=== PATIENT | male | born 1950 | race Hispanic/Latino ===

== ENCOUNTER 2017-07-21 07:47 | Day surgery (SDC) | payer MEDICARE ==
[2017-07-16 09:45] VITALS: BP 141/93
[2017-07-16 10:05] LABS: BASOPHILS % (AUTO) 0.5 % (0.0-5.0); EOSINOPHILS % (AUTO) 1.6 % (0.0-8.0); HEMATOCRIT 38.6 % (42-54); LYMPHOCYTES % (AUTO) 38.2 % (21.0-51.0); MEAN CORPUSCULAR HEMOGLOBIN 32.9 pg (27.0-33.0); MEAN CORPUSCULAR HGB CONC 34.5 g/dL (32.0-36.0); MEAN CORPUSCULAR VOLUME 95.4 fL (79-99); MONOCYTES % (AUTO) 8.5 % (3.0-13.0); NEUTROPHILS % (AUTO) 51.2 % (40.0-77.0); PLATELET COUNT (AUTO) 179 K/uL (130-400); RED BLOOD CELL COUNT(AUTO) 4.05 MIL/uL (4.50-6.20); WHITE BLOOD COUNT (AUTO) 6.9 K/uL (4.8-10.8)
[2017-07-16 10:19] LABS: CREATININE 0.8 mg/dL (0.5-1.5); POTASSIUM 4.1 mmol/L (3.5-5.1)
[2017-07-16 10:27] LABS: APPEARANCE,URINE Cloudy (CLEAR); BILIRUBIN,URINE Negative (NEGATIVE); COLOR,URINE Yellow (YELLOW); GLUCOSE, URINE (UA) Negative (NEGATIVE); KETONES,URINE Negative (NEGATIVE); LEUKOCYTE ESTERASE ,URINE Negative (NEGATIVE); NITRATE,URINE Negative (NEGATIVE); OCCULT BLOOD,URINE Negative (NEGATIVE); PH,URINE 6.5 (5.0-8.0); PROTEIN,URINE Negative (NEGATIVE)
[2017-07-21] VITALS (17 sets, daily range): BP systolic 116–138; BP diastolic 63–87
[~2017-07-21] VITALS: Ht 162.6 cm; Wt 107.5 kg
[~2017-07-21 07:47] MED LIST: ESCI10TA54 PO; FOLI1TAB15 PO; ISOS30TA6 PO; LEVO175T4 PO; TAMS0.4C32 PO
[2017-07-21] MEDS ORDERED: LACTATED RINGERS 1000ML 1,000 ML IV ONE (08:41)
[2017-07-21] MEDS ORDERED: PROPOFOL 10 MG/ML 20ML VIAL IV ONE ×2 (10:22→10:53)
[2017-07-21] MEDS ORDERED: FENTANYL CITRATE PF 50 MCG/1 ML 2ML VIAL ONE (10:31)
[2017-07-21] MEDS ORDERED: BUPIVACAINE/PF 0.25% 30ML VIAL IJ ONE (10:33)
== END 2017-07-21 13:10 | disposition home or self-care (01) ==
LOC: DAH 07:47
PROVIDERS: ATTEND Surgery
DX: D17.1 Benign lipomatous neoplasm of skin and subcutaneous tissue of trunk (principal); I10 Essential (primary) hypertension; Z90.49 Acquired absence of other specified parts of digestive tract
CPT/HCPCS: 21552; 36415; 80048; 81003; 85025; 88304; A4450; J2704 ×2; J3010; J7120; J3490

== ENCOUNTER 2022-04-19 04:03 | Inpatient (IN) | payer OTHER, MEDICARE ==
[~2022-04-19] VITALS: Ht 157.5 cm; Wt 95.2 kg
[~2022-04-19 04:03] MED LIST changes: +ESCI-8 PO; -ESCI10TA54 PO; -ISOS30TA6 PO; +ISOS30TA92 PO
[2022-04-19 04:15] LABS: BASOPHILS % (AUTO) 0.2 % (0.0-5.0); EOSINOPHILS % (AUTO) 0.7 % (0.0-8.0); HEMATOCRIT 36.9 % (42-54); MEAN CORPUSCULAR HEMOGLOBIN 31.7 pg (27.0-33.0); MEAN CORPUSCULAR VOLUME 90.7 fL (79-99); MONOCYTES % (AUTO) 6.9 % (3.0-13.0); PLATELET COUNT (AUTO) 160 K/uL (130-400); RED BLOOD CELL COUNT(AUTO) 4.07 MIL/uL (4.50-6.20); RED CELL DISTRIBUTION WIDTH 12.3 % (11.0-15.5); WHITE BLOOD COUNT (AUTO) 5.7 K/uL (4.8-10.8)
[2022-04-19 04:35] LABS: CREATININE 0.5 mg/dL (0.5-1.5); POTASSIUM 4.4 mmol/L (3.5-5.1)
[2022-04-19 04:38] LABS: B-TYPE NATRIURETIC PEPTIDE 15 pg/mL (0-100)
[2022-04-19 04:40] LABS: ALBUMIN 4.1 g/dL (3.5-5.0)
[2022-04-19] MEDS ORDERED: PANTOPRAZOLE 40 MG TAB DR PO SCH (09:00)
[2022-04-19] MEDS ORDERED: NITROGLYCERIN 0.4 MG SL TAB SL PRN (09:00)
[2022-04-19 10:14] LABS: INR 1.05 (0.85-1.15); PROTHROMBIN TIME 11.4 SEC (9.6-11.6)
[2022-04-19 10:15] LABS: PARTIAL THROMBOPLASTIN TIME 27.1 SEC (26.3-35.5)
[2022-04-19] MEDS: 0.9%NACL 1000ML 1,000 ML IV SCH ×2 (10:16→15:25)
[2022-04-19] MEDS: ASPIRIN 81 MG EC TAB PO SCH (10:17)
[2022-04-19 10:25] LABS: CHOLESTEROL 136 mg/dL (<200); HDL CHOLESTEROL 47 mg/dL (29-71); LDL DIRECT 85 mg/dL (0-99); TRIGLYCERIDES 76 mg/dL (30-200)
[2022-04-19 10:26] LABS: CRP QUANTITATIVE < 2.00 mg/L (0.00-9.0)
[2022-04-19] MEDS ORDERED: OMEP40CA21 PO (10:48)
[2022-04-19] MEDS ORDERED: SERT-439 PO (10:48)
[2022-04-19 15:20] VITALS: BP 135/53
[2022-04-19] MEDS: ENOXAPARIN SODIUM 40 MG/0.4 ML SYRINGE SQ SCH (15:26)
[2022-04-19 19:03] VITALS: BP 97/65
[2022-04-19] MEDS: TAMSULOSIN HCL 0.4 MG CAP.ER.24H PO SCH (20:14)
[2022-04-20 00:06] VITALS: BP 121/70
[2022-04-20 03:09] VITALS: BP 118/63
[2022-04-20 06:42] LABS: APPEARANCE,URINE CLEAR (CLEAR); BILIRUBIN,URINE SMALL mg/dL (NEGATIVE); COLOR,URINE YELLOW (YELLOW); GLUCOSE, URINE (UA) NEGATIVE (NEGATIVE); KETONES,URINE 15 mg/dL (NEGATIVE); LEUKOCYTE ESTERASE ,URINE NEGATIVE Leu/uL (NEGATIVE); NITRATE,URINE NEGATIVE (NEGATIVE); OCCULT BLOOD,URINE TRACE-LYSED (NEGATIVE); PROTEIN,URINE NEGATIVE (NEGATIVE)
[2022-04-20 06:48] LABS: BASOPHILS % (AUTO) 0.5 % (0.0-5.0); EOSINOPHILS % (AUTO) 1.3 % (0.0-8.0); HEMATOCRIT 34.6 % (42-54); LYMPHOCYTES % (AUTO) 45.5 % (21.0-51.0); MEAN CORPUSCULAR HEMOGLOBIN 31.8 pg (27.0-33.0); MEAN CORPUSCULAR HGB CONC 34.4 g/dL (32.0-36.0); MEAN CORPUSCULAR VOLUME 92.5 fL (79-99); MONOCYTES % (AUTO) 9.6 % (3.0-13.0); NEUTROPHILS % (AUTO) 42.7 % (40.0-77.0); PLATELET COUNT (AUTO) 140 K/uL (130-400); RED BLOOD CELL COUNT(AUTO) 3.74 MIL/uL (4.50-6.20); RED CELL DISTRIBUTION WIDTH 12.4 % (11.0-15.5); WHITE BLOOD COUNT (AUTO) 5.5 K/uL (4.8-10.8)
[2022-04-20] MEDS ORDERED: REGADENOSON 0.4 MG/5 ML PF SYG IVP SCH (07:00)
[2022-04-20 07:37] LABS: AMPHET/METH SCREEN,URINE NEGATIVE (NEGATIVE); BARBITURATE SCREEN, URINE NEGATIVE (NEGATIVE); BENZODIAZEPINES SCREEN,URINE NEGATIVE (NEGATIVE); CANNABINOID SCREEN,URINE NEGATIVE (NEGATIVE); COCAINE SCREEN,URINE NEGATIVE (NEGATIVE); PHENCYCLIDINE SCREEN,URINE NEGATIVE (NEGATIVE)
[2022-04-20 07:47] LABS: BACTERIA,URINE Rare /HPF (None Seen); WBC,URINE 0-1 /HPF (0-1)
[2022-04-20 08:11] LABS: ALBUMIN 3.4 g/dL (3.5-5.0); CREATININE 0.8 mg/dL (0.5-1.5); MAGNESIUM 1.9 mg/dL (1.80-2.40); POTASSIUM 3.9 mmol/L (3.5-5.1); TOTAL PROTEIN, SERUM 6.8 g/dL (6.0-8.3)
[2022-04-20] MEDS: PANTOPRAZOLE 40 MG TAB DR PO SCH (10:10)
[2022-04-20] MEDS: SERTRALINE HCL 50 MG TABLET PO SCH (10:10)
[2022-04-20] MEDS: LEVOTHYROXINE 75 MCG TABLET PO SCH (10:10)
[2022-04-20] MEDS: LEVOTHYROXINE 100 MCG TABLET PO SCH (10:10)
[2022-04-20] MEDS: ASPIRIN 81 MG EC TAB PO SCH (10:11)
[2022-04-20] MEDS: ENOXAPARIN SODIUM 40 MG/0.4 ML SYRINGE SQ SCH (10:11)
[2022-04-20 12:29] VITALS: BP 125/72
[2022-04-20 16:00] VITALS: BP 110/76
[2022-04-20 19:09] VITALS: BP 132/57
[2022-04-20] MEDS: TAMSULOSIN HCL 0.4 MG CAP.ER.24H PO SCH (20:43)
[2022-04-21 00:09] VITALS: BP 125/76
[2022-04-21 03:09] VITALS: BP 122/82
[2022-04-21] MEDS: LEVOTHYROXINE 75 MCG TABLET PO SCH (05:46)
[2022-04-21] MEDS: LEVOTHYROXINE 100 MCG TABLET PO SCH (05:46)
[2022-04-21 08:18] VITALS: BP 126/75
[2022-04-21] MEDS: ASPIRIN 81 MG EC TAB PO SCH (08:47)
[2022-04-21] MEDS: PANTOPRAZOLE 40 MG TAB DR PO SCH (08:47)
[2022-04-21] MEDS: SERTRALINE HCL 50 MG TABLET PO SCH (08:47)
[2022-04-21] MEDS: ENOXAPARIN SODIUM 40 MG/0.4 ML SYRINGE SQ SCH (08:48)
[2022-04-21] MEDS ORDERED: AEC81 PO (10:17)
== END 2022-04-21 11:45 | disposition home or self-care (01) | DRG 392 ==
LOC: EDH 04:03 → INTOOBSV 08:36 → EDHIP 08:36 → OBSVTOIN 08:48 → 2DH 15:19
PROVIDERS: ADMIT Internal Medicine; ATTEND Internal Medicine
PROC: B44HZZZ Ultrasonography of Bilateral Lower Extremity Arteries (ICD-10-PCS; principal; 2022-04-19)
DX: K21.9 Gastro-esophageal reflux disease without esophagitis (principal); E44.0 Moderate protein-calorie malnutrition; E11.9 Type 2 diabetes mellitus without complications; I25.10 Atherosclerotic heart disease of native coronary artery without angina pectoris; F41.9 Anxiety disorder, unspecified; N40.0 Benign prostatic hyperplasia without lower urinary tract symptoms
CPT/HCPCS: 36415; 71045; 71250; 74176; 78452; 80053; 80061; 80305; 81001; 82550; 83735; 83874; 83880; 84145; 84443; 84484; 85025; 85378; 85610; 85651; 85730; 86140; 87635; 87804; 93005; 93017; 93306; 93970; 96360; 96361; 96372; 96374; A9500; G0378; J1650; J2785; J7030

== ENCOUNTER → 2024-07-14 | Outpatient (CLI) | payer OTHER, MEDICARE ==
[~2024-07-14] MED LIST changes: +AEC81 PO; -ESCI-8 PO; -FOLI1TAB15 PO; -ISOS30TA92 PO; +OMEP40CA21 PO; +SERT-439 PO
--- NOTE | 2024-07-14 20:58 | HMCSR ---
APPROVED REPORT EXAM: Two-dimensional and M-mode echocardiogram with Doppler and color Doppler. INDICATION ICD: R53.83 Other fatigue 2D Dimensions RVDd3.4 cmLVEF(%)62.3 (>50%)LVED Vol(simp.)86.4 mL IVSd1.0 (0.7-1.1cm)FS(%)33 %LVES Vol(simp.)36.3 mL LVDd4.2 (3.8-5.6cm)LA (2D)3.6 (1.6-4.0cm)LVEF(%, simp.)58 % PWd1.2 (0.7-1.1cm)Ao Root(2D)3.4 (2.0-3.7cm)LA ESV INDEX (4CH)28.70 mL/m2 IVSs1.3 cmLA ESV INDEX (2CH)23.00 mL/m2 LVDs2.8 (2.5-4.0cm)LA ESV INDEX (BP)27.00 mL/m2 PWs1.4 cm M-Mode Dimensions EPSS1.1 cm LA (MM)4.0 (1.6-4.0cm) Ao Root(MM)3.1 (2.0-3.7cm) Aortic Valve AoV VTI0.3 mAo Mean GR5.0 mmHgLVOT VTI0.19 m Mitral Valve MV E Vmax51.4 cm/sDECEL Xtla183 ms MV A Vmax66.0 cm/sP 1/2 T45 ms E/A ratio0.8MVA (PHT)4.9 cm2 TDI E/E' Medial8.3E/E' Lateral4.2 Medial E' Peak V6.20 cm/sLateral E' Peak V12.30 cm/s Tricuspid Valve TR Vmax2.3 m/s TR Peak GR22.1 mmHg Left Ventricle The left ventricle is normal size. There is normal LV segmental wall motion. There is normal left aranza tricular wall thickness. LVEF is 55-60%. Indeterminate diastolic dysfunction. Right Ventricle The right ventricle is normal size. The right ventricular systolic function is normal. Atria The left atrium size is normal. The right atrium size is normal. Aortic Valve The aortic valve is normal in structure. No aortic regurgitation is present. There is no aortic valvu lar stenosis. Mitral Valve The mitral valve is normal in structure. There is no mitral valve regurgitation noted. There is no mi tral valve stenosis. Tricuspid Valve The tricuspid valve is normal in structure. There is trace of tricuspid valve regurgitation noted. Pulmonic Valve The pulmonary valve is normal in structure. There is no pulmonic valvular regurgitation. Great Vessels The aortic root is normal in size. The IVC is normal in size and collapses >50% with inspiration. Pericardium There is no pericardial effusion. Other Information Quality : Adequate Conclusion LVEF is 55-60%.
== END | disposition home or self-care (01) ==
LOC: RAH 12:50
PROVIDERS: ATTEND Family Medicine
DX: I07.1 Rheumatic tricuspid insufficiency (principal); R53.83 Other fatigue
CPT/HCPCS: 93306

== ENCOUNTER → 2024-08-05 | Outpatient (CLI) | payer OTHER, MEDICARE ==
[2024-08-05 22:11] VITALS: PULSE 72; RESP 20
[2024-08-05 23:00] VITALS: PULSE 74; RESP 16; RESP 20
[2024-08-05 23:30] VITALS: PULSE 68; RESP 16
[2024-08-06] VITALS (11 sets, daily range): PULSE 64–74; RESP 12–18
== END | disposition home or self-care (01) ==
LOC: SLP 20:04
PROVIDERS: ATTEND Family Medicine
DX: G47.33 Obstructive sleep apnea (adult) (pediatric) (principal); R06.83 Snoring; E66.09 Other obesity due to excess calories
CPT/HCPCS: 95810

== ENCOUNTER → 2024-08-19 | Outpatient (CLI) | payer OTHER, MEDICARE ==
[2024-08-19 22:19] VITALS: PULSE 60; RESP 18
[2024-08-19 23:00] VITALS: PULSE 54; RESP 14
[2024-08-19 23:30] VITALS: PULSE 58; RESP 14
[2024-08-20] VITALS (11 sets, daily range): PULSE 52–62; RESP 12–16
== END | disposition home or self-care (01) ==
LOC: SLP 20:30
PROVIDERS: ATTEND Family Medicine
DX: G47.33 Obstructive sleep apnea (adult) (pediatric) (principal); R06.83 Snoring; E66.9 Obesity, unspecified
CPT/HCPCS: 95811

== ENCOUNTER → 2024-10-31 | Outpatient (CLI) | payer OTHER ==
--- NOTE | 2024-10-31 14:27 | HMCIMG ---
CT calcium scoring Clinical Information: [facility] SCREENING Comparison: None CT Dose Index (CTDI): 13.30 mGy Dose Length Product (DLP): 186.18 total mGy-cm Findings: Calcium score 230.4. Moderate calcification. The CT scan is not a complete chest CT. Covered portion is reviewed for incidental findings. No incidental findings seen. IMPRESSION: Calcium score as above. Calcium score reference stable: 0: No identifiable calcification 1- 10: Minimal identifiable calcification 11-100: Mild calcification 101- 400: Moderate calcification 401 and above: Significant calcification Automated exposure control and adequate statistical iterative reconstructions were utilized as dose reduction techniques.
== END | disposition home or self-care (01) ==
LOC: RAH 12:50
PROVIDERS: ATTEND Internal Medicine Cardiovascular Disease
DX: Z13.6 Encounter for screening for cardiovascular disorders (principal)
CPT/HCPCS: 75571